=== PATIENT | female | born 1955 | race Caucasian/White ===

== ENCOUNTER → 2017-01-31 | Outpatient (CLI) | payer OTHER | LOC: EMI 16:42 | DX: M79.603 Pain in arm, unspecified (principal); M75.92 Shoulder lesion, unspecified, left shoulder | CPT/HCPCS: 73221 ==

== ENCOUNTER 2022-01-01 23:28 | Emergency (ER) | payer MEDICARE, OTHER ==
[2022-01-02] MEDS ORDERED: VISTARIL 25 MG25 MG PO (01:52)
== END 2022-01-02 02:00 | disposition home or self-care (01) ==
LOC: ER1 23:28
DX: M71.22 Synovial cyst of popliteal space [Baker], left knee (principal); M17.12 Unilateral primary osteoarthritis, left knee; F41.9 Anxiety disorder, unspecified; Z88.6 Allergy status to analgesic agent
CPT/HCPCS: 99283